=== PATIENT | female | born 1950 | race Caucasian/White ===

== ENCOUNTER 2017-07-20 08:16 | Inpatient (IN) ==
[2017-07-20] MEDS ORDERED: HYDROmorphone 2 MG/1 ML VIAL IV STA (09:35)
[2017-07-20] MEDS ORDERED: ONDANSETRON 4 MG/2 ML VIAL IV STA (09:35)
[2017-07-20] MEDS ORDERED: KETOROLAC 30 MG/1 ML VIAL IV STA (09:35)
[2017-07-20] MEDS ORDERED: cefTRIAXone 1,000 MG in SODIUM CHLORIDE 0.9% 100 ML IV STA (09:35)
[2017-07-20] MEDS ORDERED: SODIUM CHLORIDE 0.9% 500 ML IV STA (09:35)
[2017-07-20 10:13] LABS: Basophils # 0.1 10*3/uL (0.0-0.2); Basophils % 0.5 % (0.0-0.8); Eosinophils # 0.1 10*3/uL (0.0-0.87); Eosinophils % 1.2 % (0.00-10.9); Hematocrit 39.4 VOL% (35.7-47.0); Hemoglobin 13.2 GM/DL (12.0-16.0); Immature Granulocytes % 0.4 %; Immature Granulocytes Absolute 0.04 #; Lymphocytes # 0.4 10*3/uL (1.4-4.0); Lymphocytes % 3.7 % (21.3-54.2); Mean Corpuscular HGB Conc 33.5 GM/DL (32-36); Mean Corpuscular Hemoglobin 29 PG (27-34); Mean Corpuscular Volume 86.8 FL (87-102); Mean Platelet Volume 11.3 FL (9.6-12.0); Monocytes # 0.5 10*3/uL (0.11-0.8); Monocytes % 4.5 % (1.7-12.7); Neutrophils # 9.3 10*3/uL (1.4-7.4); Neutrophils % 89.7 % (38.7-73.9); Platelet Count 134 T/CUMM (130-400); Red Blood Count 4.54 MC/CUMM (3.8-5.5); White Blood Count 10.4 T/CUMM (4-12)
[2017-07-20 10:27] LABS: Alanine Aminotransferase 24 U/L (13-56); Albumin 3.5 G/DL (3.4-5.0); Alkaline Phosphatase 100 U/L (45-117); Amylase 59 U/L (25-115); Aspartate Amino Transferase 18 U/L (0-37); Blood Urea Nitrogen 34 MG/DL (7-18); Glucose 164 MG/DL (74-106); Osmolality,Calculated 290.4 MOS/KG (273-304); Sodium 140 MMOL/L (136-145); Total Protein 7.3 G/DL (6.4-8.3); Troponin I Only < 0.015 NG/ML (0.00-0.045)
[2017-07-20 10:31] LABS: Apearance,Urine CLEAR (Clear); Bacteria,Urine Moderate /HPF (Few); Bilirubin,Urine Negative (Negative); Blood, Urine Moderate mg/dL (Negative); Glucose,Urine (UA) Negative (Negative); Hyaline Casts,Urine 3 /LPF (0-3); Ketones,Urine Negative (Negative); Mucus,Urine Occasional /LPF (Occasional); Nitrite,Urine Negative (Negative); Protein,Urine Negative; RBC,Urine 9 /HPF (0-4); Squamous Epithelial Cell,Urine Occasional /HPF (0-10); Urine Color Yellow (Yellow); WBC,Urine 29 /HPF (0-6)
[2017-07-20 10:32] LABS: Lactic Acid 1.7 MMOL/L (0.4-2.0)
[2017-07-20] MEDS ORDERED: POTASSIUM CHLORIDE 20 MEQ TABLET PO STA (10:52)
[2017-07-20] MEDS: PIPERACILLIN/TAZOBACTAM 3,375 MG in SODIUM CHLORIDE 0.9% 100 ML IV SCH ×2 (12:21→20:25)
[2017-07-20] MEDS ORDERED: ENOXAPARIN 40 MG/0.4 ML SYRINGE SUBCUT SCH ×2 (15:30→21:00)
[2017-07-20] MEDS: SODIUM CHLORIDE 0.9% 1,000 ML IV SCH (16:56)
[2017-07-20] MEDS ORDERED: LEVOFLOXACIN INJ 500 MG in PREMIX 1 EACH IV ONE (17:00)
[2017-07-20] MEDS ORDERED: KETOROLAC 15 MG/1 ML VIAL IV PRN (18:57)
[2017-07-20] MEDS ORDERED: ACETAMINOPHEN 325 MG TABLET PO PRN (18:57)
[2017-07-20] MEDS ORDERED: oxyCODONE IR 5 MG TABLET PO PRN (18:57)
[2017-07-20] MEDS: RIVAROXABAN 15 MG TABLET PO SCH (20:25)
[2017-07-20] MEDS: CARVEDILOL 25 MG TABLET PO SCH (20:26)
[2017-07-21] MEDS: PIPERACILLIN/TAZOBACTAM 3,375 MG in SODIUM CHLORIDE 0.9% 100 ML IV SCH ×2 (02:42→11:51)
[2017-07-21 05:44] LABS: Basophils # 0.1 10*3/uL (0.0-0.2); Basophils % 0.6 % (0.0-0.8); Eosinophils # 0.2 10*3/uL (0.0-0.87); Eosinophils % 1.9 % (0.00-10.9); Hemoglobin 11.3 GM/DL (12.0-16.0); Immature Granulocytes % 0.4 %; Immature Granulocytes Absolute 0.04 #; Lymphocytes % 10.5 % (21.3-54.2); Mean Corpuscular HGB Conc 33.2 GM/DL (32-36); Mean Corpuscular Hemoglobin 29 PG (27-34); Mean Corpuscular Volume 87.2 FL (87-102); Monocytes # 1.2 10*3/uL (0.11-0.8); Monocytes % 12.8 % (1.7-12.7); Neutrophils # 6.9 10*3/uL (1.4-7.4); Neutrophils % 73.8 % (38.7-73.9); Platelet Count 124 T/CUMM (130-400); Red Cell Distribution Width 13.7 % (9.3-17.3); White Blood Count 9.4 T/CUMM (4-12)
[2017-07-21 06:12] LABS: Albumin 2.7 G/DL (3.4-5.0); Bilirubin,Total 0.9 MG/DL (0.2-1.0); Calcium 8.3 MG/DL (8.5-10.1); Osmolality,Calculated 294.8 MOS/KG (273-304); Potassium 4.2 MMOL/L (3.5-5.1)
[2017-07-21] MEDS: VALSARTAN/HCTZ 80-12.5 MG TABLET PO SCH (10:13)
[2017-07-21] MEDS: LEVOTHYROXINE 112 MCG TABLET PO SCH (10:13)
[2017-07-21] MEDS: DILTIAZEM CD 120 MG CAPSULE PO SCH (10:13)
[2017-07-21] MEDS: MAGNESIUM OXIDE 400 MG TABLET PO SCH (10:13)
[2017-07-21] MEDS: CARVEDILOL 25 MG TABLET PO SCH ×2 (10:13→20:34)
[2017-07-21] MEDS ORDERED: LEVOFLOXACIN INJ 250 MG in PREMIX 1 EACH IV SCH (18:00)
[2017-07-21] MEDS: RIVAROXABAN 15 MG TABLET PO SCH (20:34)
[2017-07-22] MEDS: SODIUM CHLORIDE 0.9% 1,000 ML IV SCH (01:45)
[2017-07-22 05:46] LABS: Basophils # 0.1 10*3/uL (0.0-0.2); Basophils % 0.9 % (0.0-0.8); Eosinophils # 0.1 10*3/uL (0.0-0.87); Eosinophils % 1.9 % (0.00-10.9); Immature Granulocytes % 0.5 %; Immature Granulocytes Absolute 0.03 #; Lymphocytes # 1.3 10*3/uL (1.4-4.0); Lymphocytes % 19.7 % (21.3-54.2); Mean Corpuscular HGB Conc 34.4 GM/DL (32-36); Mean Corpuscular Hemoglobin 30 PG (27-34); Mean Corpuscular Volume 87.4 FL (87-102); Mean Platelet Volume 11.6 FL (9.6-12.0); Monocytes # 0.8 10*3/uL (0.11-0.8); Monocytes % 12.5 % (1.7-12.7); Neutrophils # 4.1 10*3/uL (1.4-7.4); Neutrophils % 64.5 % (38.7-73.9); Platelet Count 128 T/CUMM (130-400); Red Blood Count 3.66 MC/CUMM (3.8-5.5); Red Cell Distribution Width 13.6 % (9.3-17.3); White Blood Count 6.3 T/CUMM (4-12)
[2017-07-22 06:07] LABS: Calcium 8.7 MG/DL (8.5-10.1); Osmolality,Calculated 285.1 MOS/KG (273-304); Potassium 3.8 MMOL/L (3.5-5.1)
[2017-07-22] MEDS: VALSARTAN/HCTZ 80-12.5 MG TABLET PO SCH (09:42)
[2017-07-22] MEDS: DILTIAZEM CD 120 MG CAPSULE PO SCH (09:43)
[2017-07-22] MEDS: LEVOTHYROXINE 112 MCG TABLET PO SCH (09:43)
[2017-07-22] MEDS: MAGNESIUM OXIDE 400 MG TABLET PO SCH (09:43)
[2017-07-22] MEDS: CARVEDILOL 25 MG TABLET PO SCH (09:43)
[2017-07-22 12:34] VITALS: BP 128/83
== END 2017-07-22 13:11 | disposition home or self-care (01) | DRG 683 ==
LOC: N.ED 08:16 → N.EDINP 10:58 → N.5E 12:00
PROVIDERS: ADMIT Internal Medicine; ATTEND Internal Medicine

== ENCOUNTER 2019-09-27 08:02 | Inpatient (IN) ==
[2019-09-27] MEDS ORDERED: HYDROmorphone 2 MG/1 ML VIAL IV STA (08:30)
[2019-09-27] MEDS ORDERED: ONDANSETRON 4 MG/2 ML VIAL IV STA (08:30)
[2019-09-27 08:59] LABS: Apearance,Urine Slightly Hazy (Clear); Bacteria,Urine Occasional /HPF (Few); Bilirubin,Urine Negative (Negative); Blood, Urine Negative (Negative); Glucose,Urine (UA) Negative (Negative); Ketones,Urine 5 mg/dL (Negative); Nitrite,Urine Negative (Negative); Protein,Urine Negative; RBC,Urine 1 /HPF (0-4); Squamous Epithelial Cell,Urine Occasional /HPF (0-10); Urine Color Straw (Yellow); Urine Specific Gravity 1.005 (1.001-1.035); Urine Urobilinogen < 2.0 EU/DL (0.2-1.0); WBC,Urine 16 /HPF (0-6)
[2019-09-27 09:27] LABS: Basophils # 0.1 10*3/uL (0.0-0.2); Basophils % 1.2 % (0.0-0.8); Eosinophils # 0.5 10*3/uL (0.0-0.87); Eosinophils % 7.6 % (0.00-10.9); Hematocrit 34.6 VOL% (35.7-47.0); Hemoglobin 10.3 GM/DL (12.0-16.0); Immature Granulocytes % 0.3 %; Immature Granulocytes Absolute 0.02 #; Lymphocytes # 0.6 10*3/uL (1.4-4.0); Lymphocytes % 8.2 % (21.3-54.2); Mean Corpuscular HGB Conc 29.8 GM/DL (32-36); Mean Corpuscular Volume 78.1 FL (87-102); Mean Platelet Volume 10.2 FL (9.6-12.0); Monocytes % 7.3 % (1.7-12.7); Neutrophils % 75.4 % (38.7-73.9); Platelet Count 180 T/CUMM (130-400); Red Blood Count 4.43 MC/CUMM (3.8-5.5); Red Cell Distribution Width 17.3 % (9.3-17.3); White Blood Count 6.9 T/CUMM (4-12)
[2019-09-27 10:05] LABS: Albumin 4.1 G/DL (3.4-5.0); Bilirubin,Total 1.4 MG/DL (0.2-1.0); Calcium 9.8 MG/DL (8.5-10.1); Osmolality,Calculated 287.3 MOS/KG (273-304); Total Protein 7.8 G/DL (6.4-8.3)
[2019-09-27] MEDS ORDERED: ONDANSETRON 4 MG/2 ML VIAL IV PRN (12:33)
[2019-09-27] MEDS ORDERED: ACETAMINOPHEN 325 MG TABLET PO PRN (12:33)
[2019-09-27] MEDS ORDERED: BISACODYL 5 MG TABLET PO PRN (12:33)
[2019-09-27] MEDS ORDERED: MORPHINE 4 MG/1 ML VIAL IV PRN ×2 (12:33)
[2019-09-27] MEDS ORDERED: ALBUTEROL/IPRATROPIUM 3 ML NEB RESP TX PRN (12:33)
[2019-09-27] MEDS ORDERED: cefOXitin 2,000 MG in SYRINGE 1 EACH IV ONE (12:36)
[2019-09-27 15:58] LABS: INR 1.4; PT Patient Result 15.2 SECS (9.8-11.9); Partial Thromboplastin Time 47.1 SECS (23.9-33.8)
[2019-09-27] MEDS ORDERED: DEXTROSE 50% 25 GM/50 ML VIAL IV PRN (16:13)
[2019-09-27] MEDS ORDERED: GLUCAGON 1 MG VIAL IM PRN (16:13)
[2019-09-27] MEDS: LACTATED RINGERS 1,000 ML IV SCH (16:24)
[2019-09-27] MEDS: INSULIN LISPRO 100 UNIT/ML SUBCUT SCH ×2 (16:31→22:22)
[2019-09-27] MEDS: carvediloL 25 MG TABLET PO SCH (22:22)
[2019-09-28 06:20] LABS: Basophils % 0.7 % (0.0-0.8); Eosinophils # 0.4 10*3/uL (0.0-0.87); Eosinophils % 7.5 % (0.00-10.9); Hematocrit 28.9 VOL% (35.7-47.0); Hemoglobin 8.5 GM/DL (12.0-16.0); Immature Granulocytes % 0.3 %; Immature Granulocytes Absolute 0.02 #; Lymphocytes # 0.6 10*3/uL (1.4-4.0); Lymphocytes % 10.3 % (21.3-54.2); Mean Corpuscular HGB Conc 29.4 GM/DL (32-36); Mean Corpuscular Volume 78.3 FL (87-102); Mean Platelet Volume 10.2 FL (9.6-12.0); Monocytes % 14.4 % (1.7-12.7); Neutrophils % 66.8 % (38.7-73.9); Platelet Count 143 T/CUMM (130-400); Red Blood Count 3.69 MC/CUMM (3.8-5.5); Red Cell Distribution Width 17.6 % (9.3-17.3); White Blood Count 5.9 T/CUMM (4-12)
[2019-09-28] MEDS ORDERED: DIAZEPAM 5 MG TABLET PO ONE (06:38)
[2019-09-28] MEDS ORDERED: GABAPENTIN 400 MG CAPSULE PO ONE (06:38)
[2019-09-28 06:40] LABS: Albumin 3.1 G/DL (3.4-5.0); Bilirubin,Total 1.6 MG/DL (0.2-1.0); Calcium 9.5 MG/DL (8.5-10.1); Osmolality,Calculated 281.3 MOS/KG (273-304); Total Protein 6.5 G/DL (6.4-8.3)
[2019-09-28 06:41] LABS: Calcium 9.4 MG/DL (8.5-10.1); Osmolality,Calculated 283.1 MOS/KG (273-304)
[2019-09-28] MEDS: LACTATED RINGERS 1,000 ML IV SCH (07:53)
[2019-09-28] MEDS: carvediloL 25 MG TABLET PO SCH ×2 (08:35→16:53)
[2019-09-28] MEDS: DILTIAZEM CD 180 MG CAPSULE PO SCH (08:36)
[2019-09-28] MEDS: hydroCHLOROthiazide 25 MG TABLET PO SCH (08:36)
[2019-09-28] MEDS: FUROSEMIDE 40 MG TABLET PO SCH (08:36)
[2019-09-28] MEDS: INSULIN LISPRO 100 UNIT/ML SUBCUT SCH ×4 (08:40→21:37)
[2019-09-28 09:03] LABS: Bilirubin,Direct 0.78 MG/DL (0.0-0.20); Bilirubin,Total 1.6 MG/DL (0.2-1.0)
[2019-09-28] MEDS: SPIRONOLACTONE 25 MG TABLET PO SCH (09:03)
[2019-09-28] MEDS: VALSARTAN 80 MG TABLET PO SCH (09:03)
[2019-09-28] MEDS: PANTOPRAZOLE 40 MG TABLET PO SCH (09:05)
[2019-09-29 05:49] LABS: Basophils # 0.1 10*3/uL (0.0-0.2); Eosinophils # 0.4 10*3/uL (0.0-0.87); Eosinophils % 6.8 % (0.00-10.9); Hematocrit 27.3 VOL% (35.7-47.0); Hemoglobin 8.1 GM/DL (12.0-16.0); Immature Granulocytes % 0.2 %; Immature Granulocytes Absolute 0.01 #; Lymphocytes # 1.1 10*3/uL (1.4-4.0); Lymphocytes % 22.3 % (21.3-54.2); Mean Corpuscular HGB Conc 29.7 GM/DL (32-36); Mean Corpuscular Volume 78.7 FL (87-102); Mean Platelet Volume 10.9 FL (9.6-12.0); Monocytes % 15.9 % (1.7-12.7); Neutrophils % 53.8 % (38.7-73.9); Platelet Count 138 T/CUMM (130-400); Red Blood Count 3.47 MC/CUMM (3.8-5.5); Red Cell Distribution Width 17.7 % (9.3-17.3); White Blood Count 5.1 T/CUMM (4-12)
[2019-09-29 06:15] LABS: Calcium 9.2 MG/DL (8.5-10.1); Osmolality,Calculated 282.1 MOS/KG (273-304)
[2019-09-29 06:21] LABS: Anisocytosis 2+; Eosinophils 3 % (0-10); Lymphocytes 21 % (20-55); Platelet Estimate Adequate; Polychromasia Slight; Segmented Neutrophils 62 % (50-85); Total Cells Counted 100
[2019-09-29 06:22] LABS: Bilirubin,Total 2.6 MG/DL (0.2-1.0); Calcium 8.8 MG/DL (8.5-10.1); Osmolality,Calculated 282.1 MOS/KG (273-304); Total Protein 5.8 G/DL (6.4-8.3)
[2019-09-29 06:22] LABS: Hypochromasia Slight; Macrocytosis Slight; Ovalocytes Few
[2019-09-29] MEDS: LACTATED RINGERS 1,000 ML IV SCH ×3 (08:57→23:39)
[2019-09-29] MEDS ORDERED: cefOXitin 2,000 MG in SYRINGE 1 EACH IV ONE (09:04)
[2019-09-29] MEDS: SPIRONOLACTONE 25 MG TABLET PO SCH (10:26)
[2019-09-29] MEDS: DILTIAZEM CD 180 MG CAPSULE PO SCH (10:26)
[2019-09-29] MEDS: INSULIN LISPRO 100 UNIT/ML SUBCUT SCH ×4 (10:26→20:23)
[2019-09-29] MEDS: carvediloL 25 MG TABLET PO SCH ×2 (10:26→16:50)
[2019-09-29] MEDS: VALSARTAN 80 MG TABLET PO SCH (10:26)
[2019-09-29] MEDS: hydroCHLOROthiazide 25 MG TABLET PO SCH (10:27)
[2019-09-29] MEDS: PANTOPRAZOLE 40 MG TABLET PO SCH (10:27)
[2019-09-29] MEDS: FUROSEMIDE 40 MG TABLET PO SCH (10:27)
[2019-09-29] MEDS ORDERED: POTASSIUM CHLORIDE 20 MEQ TABLET PO ONE (13:34)
[2019-09-29] MEDS ORDERED: MAGNESIUM SULF RIDER 2 GM in PREMIX 1 EACH IV ONE (13:34)
[2019-09-30 06:50] LABS: Calcium 9.5 MG/DL (8.5-10.1); Osmolality,Calculated 277.4 MOS/KG (273-304)
[2019-09-30 06:51] LABS: Albumin 3.5 G/DL (3.4-5.0); Bilirubin,Total 1.4 MG/DL (0.2-1.0); Calcium 9.5 MG/DL (8.5-10.1); Osmolality,Calculated 277.4 MOS/KG (273-304); Total Protein 7.4 G/DL (6.4-8.3)
[2019-09-30] MEDS ORDERED: cefOXitin 2,000 MG in SYRINGE 1 EACH IV ONE (07:00)
[2019-09-30 07:04] LABS: Basophils # 0.1 10*3/uL (0.0-0.2); Basophils % 1.4 % (0.0-0.8); Eosinophils # 0.6 10*3/uL (0.0-0.87); Eosinophils % 9.4 % (0.00-10.9); Hematocrit 32.6 VOL% (35.7-47.0); Hemoglobin 9.6 GM/DL (12.0-16.0); Immature Granulocytes % 0.3 %; Immature Granulocytes Absolute 0.02 #; Lymphocytes # 1.1 10*3/uL (1.4-4.0); Lymphocytes % 18.4 % (21.3-54.2); Mean Corpuscular HGB Conc 29.4 GM/DL (32-36); Mean Corpuscular Volume 79.1 FL (87-102); Mean Platelet Volume 10.2 FL (9.6-12.0); Neutrophils % 60.5 % (38.7-73.9); Platelet Count 181 T/CUMM (130-400); Red Blood Count 4.12 MC/CUMM (3.8-5.5); Red Cell Distribution Width 17.9 % (9.3-17.3); White Blood Count 5.9 T/CUMM (4-12)
[2019-09-30] MEDS ORDERED: TISSUE ADHESIVE 1 EACH APPLICATOR TOP ONE (08:04)
[2019-09-30] MEDS ORDERED: propofoL 200 MG/20 ML VIAL IV ONE (11:38)
[2019-09-30] MEDS ORDERED: DEXAMETHASONE 4 MG/1 ML VIAL ONE (11:39)
[2019-09-30] MEDS ORDERED: LIDOCAINE 2% 5 ML VIAL ONE (11:39)
[2019-09-30] MEDS ORDERED: SEVOFLURANE 1 UNIT/15 MINUTE INH ONE (11:39)
[2019-09-30] MEDS ORDERED: fentaNYL 100 MCG/2 ML VIAL ONE (11:39)
[2019-09-30] MEDS ORDERED: MIDAZOLAM 2 MG/2 ML VIAL ONE (11:39)
[2019-09-30] MEDS ORDERED: ESMOLOL 100 MG/10 ML VIAL IV ONE (11:39)
[2019-09-30] MEDS ORDERED: ACETAMINOPHEN 1,000 MG/100 ML VIAL IV ONE (11:40)
[2019-09-30] MEDS ORDERED: ROCURONIUM 100 MG/10 ML VIAL IV ONE (11:40)
[2019-09-30] MEDS ORDERED: PHENYLEPHRINE 1 MG/10 ML SYRINGE IV ONE (11:40)
[2019-09-30] MEDS ORDERED: NEOSTIGMINE 10 MG/10 ML VIAL ONE (11:40)
[2019-09-30] MEDS ORDERED: LACTATED RINGERS 1,000 ML IV ONE (11:40)
[2019-09-30] MEDS ORDERED: GLYCOPYRROLATE 0.4 MG/2 ML VIAL ONE (11:40)
[2019-09-30] MEDS ORDERED: SUGAMMADEX 200 MG/2 ML VIAL IV ONE (11:41)
[2019-09-30] MEDS ORDERED: ONDANSETRON 4 MG/2 ML VIAL ONE (12:02)
[2019-09-30] MEDS: HYDROmorphone 2 MG/1 ML VIAL IV PRN ×2 (12:02→12:19)
[2019-09-30] MEDS ORDERED: HYDROmorphone 2 MG/1 ML VIAL ONE (12:02)
[2019-09-30] MEDS ORDERED: ONDANSETRON 4 MG/2 ML VIAL IV PRN (12:04)
[2019-09-30] MEDS: INSULIN LISPRO 100 UNIT/ML SUBCUT SCH ×4 (13:23→20:57)
[2019-09-30] MEDS: DILTIAZEM CD 180 MG CAPSULE PO SCH (13:24)
[2019-09-30] MEDS: SPIRONOLACTONE 25 MG TABLET PO SCH (13:24)
[2019-09-30] MEDS: carvediloL 25 MG TABLET PO SCH ×2 (13:24→17:55)
[2019-09-30] MEDS: FUROSEMIDE 40 MG TABLET PO SCH (13:25)
[2019-09-30] MEDS: hydroCHLOROthiazide 25 MG TABLET PO SCH (13:25)
[2019-09-30] MEDS: VALSARTAN 80 MG TABLET PO SCH (13:25)
[2019-09-30] MEDS: PANTOPRAZOLE 40 MG TABLET PO SCH (13:25)
[2019-09-30] MEDS: LACTATED RINGERS 1,000 ML IV SCH (16:35)
[2019-10-01 05:57] LABS: Basophils % 0.3 % (0.0-0.8); Eosinophils % 0.1 % (0.00-10.9); Hematocrit 27.8 VOL% (35.7-47.0); Hemoglobin 8.3 GM/DL (12.0-16.0); Immature Granulocytes % 0.3 %; Immature Granulocytes Absolute 0.03 #; Lymphocytes # 0.6 10*3/uL (1.4-4.0); Lymphocytes % 6.1 % (21.3-54.2); Mean Corpuscular HGB Conc 29.9 GM/DL (32-36); Mean Corpuscular Volume 78.5 FL (87-102); Mean Platelet Volume 10.6 FL (9.6-12.0); Monocytes % 7.5 % (1.7-12.7); Neutrophils % 85.7 % (38.7-73.9); Platelet Count 161 T/CUMM (130-400); Red Blood Count 3.54 MC/CUMM (3.8-5.5); Red Cell Distribution Width 17.5 % (9.3-17.3); White Blood Count 9.1 T/CUMM (4-12)
[2019-10-01 06:24] LABS: Calcium 9.1 MG/DL (8.5-10.1); Osmolality,Calculated 279.3 MOS/KG (273-304)
[2019-10-01] MEDS: VALSARTAN 80 MG TABLET PO SCH (08:42)
[2019-10-01] MEDS: FUROSEMIDE 40 MG TABLET PO SCH (08:43)
[2019-10-01] MEDS: carvediloL 25 MG TABLET PO SCH (08:43)
[2019-10-01] MEDS: PANTOPRAZOLE 40 MG TABLET PO SCH (08:43)
[2019-10-01] MEDS: SPIRONOLACTONE 25 MG TABLET PO SCH (08:43)
[2019-10-01] MEDS: hydroCHLOROthiazide 25 MG TABLET PO SCH (08:43)
[2019-10-01] MEDS: DILTIAZEM CD 180 MG CAPSULE PO SCH (08:44)
[2019-10-01] MEDS: INSULIN LISPRO 100 UNIT/ML SUBCUT SCH ×2 (09:14→11:55)
[2019-10-01 09:22] LABS: Albumin 3.3 G/DL (3.4-5.0); Bilirubin,Total 1.1 MG/DL (0.2-1.0); Calcium 9.1 MG/DL (8.5-10.1); Osmolality,Calculated 278.4 MOS/KG (273-304); Total Protein 7.1 G/DL (6.4-8.3)
[2019-10-01 13:34] VITALS: BP 144/67
[2019-10-01] MEDS: LACTATED RINGERS 1,000 ML IV SCH ×2 (14:25→14:26)
== END 2019-10-01 14:20 | disposition home or self-care (01) | DRG 418 ==
LOC: N.ED 08:02 → N.EDINP 12:33 → N.3E 15:00
PROVIDERS: ADMIT Student in an Organized Health Care Education/Training Program; ATTEND Student in an Organized Health Care Education/Training Program
PROC: LAPCHOL (2019-09-30 07:20)

== ENCOUNTER 2020-03-28 18:30 | Inpatient (IN) ==
[2020-03-28] MEDS ORDERED: ETOMIDATE 20 MG/10 ML VIAL IV STA (18:50)
[2020-03-28] MEDS ORDERED: VECURONIUM 10 MG VIAL IV STA ×2 (18:50→21:45)
[2020-03-28] MEDS ORDERED: DOPamine 800 MG/250 ML PREMIX IV ONE (18:53)
[2020-03-28] MEDS ORDERED: SODIUM CHLORIDE 0.9% 1,000 ML IV STA (18:53)
[2020-03-28] MEDS: DOPamine 800 MG/250 ML PREMIX IV PRN (18:55)
[2020-03-28] MEDS ORDERED: NOREPINEPHRINE 4 MG/4 ML VIAL IV ONE (19:07)
[2020-03-28] MEDS ORDERED: VECURONIUM 10 MG VIAL IV ONE (19:07)
[2020-03-28] MEDS ORDERED: ETOMIDATE 20 MG/10 ML VIAL IV ONE (19:07)
[2020-03-28 19:11] LABS: Basophils # 0.1 10*3/uL (0.0-0.2); Basophils % 0.9 % (0.0-0.8); Eosinophils # 0.2 10*3/uL (0.0-0.87); Eosinophils % 3.9 % (0.00-10.9); Hematocrit 29.9 VOL% (35.7-47.0); Hemoglobin 8.7 GM/DL (12.0-16.0); Immature Granulocytes % 1.1 %; Immature Granulocytes Absolute 0.06 #; Lymphocytes # 1.1 10*3/uL (1.4-4.0); Lymphocytes % 18.9 % (21.3-54.2); Mean Corpuscular HGB Conc 29.1 GM/DL (32-36); Mean Corpuscular Volume 84.5 FL (87-102); Mean Platelet Volume 11.4 FL (9.6-12.0); Monocytes % 6.4 % (1.7-12.7); Neutrophils % 68.8 % (38.7-73.9); Platelet Count 131 T/CUMM (130-400); Red Blood Count 3.54 MC/CUMM (3.8-5.5); Red Cell Distribution Width 21.2 % (9.3-17.3); White Blood Count 5.7 T/CUMM (4-12)
[2020-03-28] MEDS: NOREPINEPHRINE 8 MG in SODIUM CHLORIDE 0.9% 242 ML IV PRN (19:14)
[2020-03-28 19:19] LABS: ABG Base Excess -5.3 MMOL/L (-2.5-2.5); ABG HCO3 20.1 MMOL/L (20-26); ABG PH 7.382 (7.35-7.45); ABG TCO2 17.5 MMOL/L (23-27)
[2020-03-28 19:28] LABS: Alanine Aminotransferase 16 U/L (13-56); Alkaline Phosphatase 96 U/L (45-117); Aspartate Amino Transferase 18 U/L (0-37); Blood Urea Nitrogen 54 MG/DL (7-18); Calcium 8.4 MG/DL (8.5-10.1); Carbon Dioxide 18 MMOL/L (21-32); Estimated Glom Filtration Rate 17 ML/MIN; Free T4 (Free Thyroxine) 1.41 NG/DL (0.76-1.46); Glucose 306 MG/DL (74-106); Osmolality,Calculated 292.4 MOS/KG (273-304); Sodium 133 MMOL/L (136-145); Total Protein 6.3 G/DL (6.4-8.3); Troponin I < 0.015 NG/ML (0.00-0.045)
[2020-03-28 19:30] LABS: Potassium 8.2 MMOL/L (3.5-5.1)
[2020-03-28] MEDS ORDERED: INSULIN REGULAR 10 UNIT, CALCIUM GLUCONATE 1,000 MG in DEXTROSE 10% 250 ML IV ONE ×2 (19:32→20:00)
[2020-03-28 19:34] LABS: Bacteria,Urine Occasional /HPF (Few); Bilirubin,Urine Negative (Negative); Blood, Urine Negative (Negative); Glucose,Urine (UA) Negative (Negative); Hyaline Casts,Urine 23 /LPF (0-3); Ketones,Urine Negative (Negative); Mucus,Urine Occasional /LPF (Occasional); Nitrite,Urine Negative (Negative); Protein,Urine Negative; RBC,Urine <1 /HPF (0-4); Squamous Epithelial Cell,Urine Occasional /HPF (0-10); Urine Appearance CLEAR (Clear); Urine Color Yellow (Yellow); Urine Specific Gravity 1.008 (1.001-1.035); Urine Urobilinogen < 2.0 EU/DL (0.2-1.0); WBC,Urine 1 /HPF (0-6)
[2020-03-28 19:41] LABS: Barbiturates Screen,Urine Negative (Negative); Benzodiazepines Screen,Urine Negative (Negative); Cannabinoid Screen,Urine Negative (Negative); Opiate Screen,Urine Negative (Negative); Phencyclidine Screen,Urine Negative (Negative)
[2020-03-28] MEDS ORDERED: ALBUTEROL/IPRATROPIUM 3 ML NEB RESP TX STA (20:10)
[2020-03-28] MEDS ORDERED: ALBUTEROL 2.5 MG/3 ML NEB RESP TX ONE (20:11)
[2020-03-28] MEDS ORDERED: ONDANSETRON 4 MG/2 ML VIAL IV PRN (21:32)
[2020-03-28] MEDS ORDERED: ALBUTEROL 2.5 MG/3 ML NEB RESP TX PRN (21:32)
[2020-03-28 21:43] LABS: Osmolality,Calculated 294.5 MOS/KG (273-304); Potassium 5.9 MMOL/L (3.5-5.1)
[2020-03-28] MEDS ORDERED: cefTRIAXone 1,000 MG in SODIUM CHLORIDE 0.9% 100 ML IV STA (21:52)
[2020-03-28] MEDS ORDERED: DEXTROSE 50% 25 GM/50 ML VIAL IV PRN (21:54)
[2020-03-28] MEDS ORDERED: GLUCAGON 1 MG VIAL IM PRN (21:54)
[2020-03-28] MEDS: MIDAZOLAM 100 MG in SODIUM CHLORIDE 0.9% 80 ML IV PRN (22:06)
[2020-03-28 22:09] LABS: INR 3.3; PT Patient Result 31.9 SECS (9.8-11.9); Partial Thromboplastin Time 46.9 SECS (23.9-33.8)
[2020-03-28] MEDS: SODIUM CHLORIDE 0.9% 1,000 ML IV SCH (22:25)
[2020-03-28] MEDS: PANTOPRAZOLE 40 MG VIAL IV SCH (22:30)
[2020-03-28] MEDS: INSULIN LISPRO 100 UNIT/ML SUBCUT SCH ×2 (22:32→23:58)
[2020-03-28 22:47] LABS: Hepatitis B Core IgM Quant < 0.05 Index; Hepatitis B Surface Ag Quant < 0.10 Index; Hepatitis B Surface Ag Result Non-Reactive (NonReactive); Hepatitis C Virus Ab Quant 0.05 Index; Hepatitis C Virus Ab Result Non-Reactive (NonReactive)
[2020-03-29] MEDS: NOREPINEPHRINE 8 MG in SODIUM CHLORIDE 0.9% 242 ML IV PRN (00:50)
[2020-03-29] MEDS: DOPamine 800 MG/250 ML PREMIX IV PRN ×3 (02:23→17:54)
[2020-03-29] MEDS: SODIUM CHLORIDE 0.9% 1,000 ML IV SCH ×4 (02:23→23:02)
[2020-03-29 04:50] LABS: Basophils # 0.1 10*3/uL (0.0-0.2); Basophils % 0.7 % (0.0-0.8); Eosinophils # 0.1 10*3/uL (0.0-0.87); Eosinophils % 0.9 % (0.00-10.9); Hematocrit 33.1 VOL% (35.7-47.0); Hemoglobin 10.3 GM/DL (12.0-16.0); Immature Granulocytes % 0.9 %; Immature Granulocytes Absolute 0.09 #; Lymphocytes % 10.1 % (21.3-54.2); Mean Corpuscular HGB Conc 31.1 GM/DL (32-36); Mean Corpuscular Volume 80.1 FL (87-102); Mean Platelet Volume 10.4 FL (9.6-12.0); Neutrophils % 78.4 % (38.7-73.9); Platelet Count 168 T/CUMM (130-400); Red Blood Count 4.13 MC/CUMM (3.8-5.5); Red Cell Distribution Width 20.6 % (9.3-17.3); White Blood Count 9.7 T/CUMM (4-12)
[2020-03-29 04:57] LABS: Albumin 3.5 G/DL (3.4-5.0); Bilirubin,Total 1.1 MG/DL (0.2-1.0); Calcium 8.7 MG/DL (8.5-10.1); Osmolality,Calculated 283.8 MOS/KG (273-304); Potassium 4.3 MMOL/L (3.5-5.1); Total Protein 7.4 G/DL (6.4-8.3)
[2020-03-29 04:58] LABS: Troponin I 0.108 NG/ML (0.00-0.045)
[2020-03-29] MEDS: INSULIN LISPRO 100 UNIT/ML SUBCUT SCH ×4 (05:02→20:27)
[2020-03-29 05:06] LABS: ABG Base Excess 0.5 MMOL/L (-2.5-2.5); ABG HCO3 24.9 MMOL/L (20-26); ABG PCO2 28.2 MM HG (35-48); ABG PH 7.511 (7.35-7.45); ABG TCO2 20.1 MMOL/L (23-27); Allen Test Positive; Pt O2 Delivery Device Ventilator
[2020-03-29 11:01] LABS: ABG Oxygen Saturation 98.9 % (95-100); ABG PCO2 26.6 MM HG (35-48); ABG PH 7.515 (7.35-7.45); ABG PO2 233.5 MM HG (80-95); ABG TCO2 21.8 MMOL/L (23-27); Allen Test Positive; Pt O2 Delivery Device Ventilator
[2020-03-29] MEDS ORDERED: HEPARIN 10,000 UNIT/10 ML VIAL IV SCH (18:30)
[2020-03-29] MEDS: PANTOPRAZOLE 40 MG VIAL IV SCH (21:00)
[2020-03-29] MEDS: MIDAZOLAM 100 MG in SODIUM CHLORIDE 0.9% 80 ML IV PRN (22:35)
[2020-03-30] MEDS: INSULIN LISPRO 100 UNIT/ML SUBCUT SCH ×6 (00:28→19:26)
[2020-03-30] MEDS: SODIUM CHLORIDE 0.9% 1,000 ML IV SCH ×2 (02:11→06:11)
[2020-03-30 02:57] LABS: ABG Base Excess 0.6 MMOL/L (-2.5-2.5); ABG PCO2 27.9 MM HG (35-48); ABG PH 7.518 (7.35-7.45); ABG TCO2 20.4 MMOL/L (23-27); Allen Test Positive; Pt O2 Delivery Device Ventilator
[2020-03-30 04:25] LABS: Basophils # 0.1 10*3/uL (0.0-0.2); Basophils % 0.6 % (0.0-0.8); Eosinophils # 0.3 10*3/uL (0.0-0.87); Eosinophils % 2.7 % (0.00-10.9); Hematocrit 30.1 VOL% (35.7-47.0); Hemoglobin 9.3 GM/DL (12.0-16.0); Immature Granulocytes % 0.4 %; Immature Granulocytes Absolute 0.04 #; Lymphocytes # 0.9 10*3/uL (1.4-4.0); Lymphocytes % 9.8 % (21.3-54.2); Mean Corpuscular HGB Conc 30.9 GM/DL (32-36); Mean Corpuscular Volume 81.6 FL (87-102); Mean Platelet Volume 10.4 FL (9.6-12.0); Monocytes % 8.4 % (1.7-12.7); Neutrophils % 78.1 % (38.7-73.9); Red Blood Count 3.69 MC/CUMM (3.8-5.5); Red Cell Distribution Width 21.1 % (9.3-17.3); White Blood Count 9.3 T/CUMM (4-12)
[2020-03-30 04:26] LABS: Platelet Count 127 T/CUMM (130-400)
[2020-03-30 04:37] LABS: % Iron Saturation 6.3 % (18-50); Albumin 2.9 G/DL (3.4-5.0); Bilirubin,Total 0.8 MG/DL (0.2-1.0); Calcium 8.8 MG/DL (8.5-10.1); Ferritin 32.6 ng/ml (8-252); Potassium 4.1 MMOL/L (3.5-5.1); Total Protein 6.3 G/DL (6.4-8.3)
[2020-03-30] MEDS: FERROUS SULFATE 300 MG/5 ML UDCUP PO SCH (20:36)
[2020-03-30] MEDS: PANTOPRAZOLE 40 MG VIAL IV SCH (21:16)
[2020-03-31] MEDS: INSULIN LISPRO 100 UNIT/ML SUBCUT SCH ×6 (00:14→21:42)
[2020-03-31 03:04] LABS: ABG Base Excess -1.2 MMOL/L (-2.5-2.5); ABG HCO3 23.4 MMOL/L (20-26); ABG Oxygen Saturation 99.3 % (95-100); ABG PCO2 39.5 MM HG (35-48); ABG PH 7.385 (7.35-7.45); ABG TCO2 21.6 MMOL/L (23-27)
[2020-03-31 04:21] LABS: Basophils % 0.4 % (0.0-0.8); Eosinophils # 0.2 10*3/uL (0.0-0.87); Eosinophils % 2.1 % (0.00-10.9); Hematocrit 30.7 VOL% (35.7-47.0); Hemoglobin 8.9 GM/DL (12.0-16.0); Immature Granulocytes % 0.5 %; Immature Granulocytes Absolute 0.05 #; Lymphocytes # 0.8 10*3/uL (1.4-4.0); Lymphocytes % 8.2 % (21.3-54.2); Mean Platelet Volume 9.7 FL (9.6-12.0); Monocytes % 8.7 % (1.7-12.7); Neutrophils % 80.1 % (38.7-73.9); Platelet Count 108 T/CUMM (130-400); Red Blood Count 3.57 MC/CUMM (3.8-5.5); Red Cell Distribution Width 20.8 % (9.3-17.3); White Blood Count 10.2 T/CUMM (4-12)
[2020-03-31 05:10] LABS: Calcium 8.8 MG/DL (8.5-10.1); Osmolality,Calculated 286.7 MOS/KG (273-304); Potassium 4.1 MMOL/L (3.5-5.1)
[2020-03-31 07:01] LABS: Hypochromasia 4+; Ovalocytes Few; Platelet Estimate Adequate
[2020-03-31] MEDS: FERROUS SULFATE 300 MG/5 ML UDCUP PO SCH ×2 (08:23→21:18)
[2020-03-31] MEDS: PIPERACILLIN/TAZOBACTAM 3,375 MG in SODIUM CHLORIDE 0.9% 100 ML IV SCH ×2 (10:58→21:16)
[2020-03-31] MEDS: METOPROLOL TARTRATE 25 MG TABLET PO SCH (21:17)
[2020-04-01] MEDS ORDERED: METOPROLOL TARTRATE 25 MG TABLET PO ONE (03:42)
[2020-04-01] MEDS: PIPERACILLIN/TAZOBACTAM 3,375 MG in SODIUM CHLORIDE 0.9% 100 ML IV SCH ×2 (03:51→11:07)
[2020-04-01 04:51] LABS: Basophils # 0.1 10*3/uL (0.0-0.2); Basophils % 0.7 % (0.0-0.8); Eosinophils # 0.3 10*3/uL (0.0-0.87); Eosinophils % 3.3 % (0.00-10.9); Hematocrit 30.6 VOL% (35.7-47.0); Hemoglobin 9.4 GM/DL (12.0-16.0); Immature Granulocytes % 0.3 %; Immature Granulocytes Absolute 0.03 #; Lymphocytes # 1.1 10*3/uL (1.4-4.0); Lymphocytes % 12.5 % (21.3-54.2); Mean Corpuscular HGB Conc 30.7 GM/DL (32-36); Mean Corpuscular Volume 82.7 FL (87-102); Mean Platelet Volume 9.8 FL (9.6-12.0); Monocytes % 10.1 % (1.7-12.7); Neutrophils % 73.1 % (38.7-73.9); Platelet Count 95 T/CUMM (130-400); Red Cell Distribution Width 20.1 % (9.3-17.3); White Blood Count 8.6 T/CUMM (4-12)
[2020-04-01 05:27] LABS: Calcium 8.9 MG/DL (8.5-10.1); Osmolality,Calculated 278.4 MOS/KG (273-304); Potassium 4.2 MMOL/L (3.5-5.1)
[2020-04-01 07:27] LABS: Anisocytosis 1+; Hypochromasia 2+; Microcytosis 1+; Ovalocytes Slight
[2020-04-01 07:28] LABS: Macrocytosis 1+; Platelet Estimate Decreased; Schistocytes Few
[2020-04-01] MEDS ORDERED: LEVOTHYROXINE 125 MCG TABLET PO SCH (09:00)
[2020-04-01] MEDS: FERROUS SULFATE 300 MG/5 ML UDCUP PO SCH ×3 (09:41→22:21)
[2020-04-01] MEDS: RIVAROXABAN 15 MG TABLET PO SCH (09:41)
[2020-04-01] MEDS: LEVOTHYROXINE 100 MCG TABLET PO SCH (09:41)
[2020-04-01] MEDS: METOPROLOL TARTRATE 25 MG TABLET PO SCH ×3 (09:42→22:21)
[2020-04-01] MEDS: INSULIN LISPRO 100 UNIT/ML SUBCUT SCH ×4 (09:42→22:07)
[2020-04-01] MEDS ORDERED: AMIODARONE 450 MG/9 ML VIAL IV ONE (11:41)
[2020-04-01] MEDS ORDERED: AMIODARONE 150 MG/3 ML VIAL ONE (11:41)
[2020-04-01] MEDS ORDERED: MAGNESIUM SULF RIDER 2 GM in PREMIX 1 EACH IV ONE (14:44)
[2020-04-01] MEDS: LEVOFLOXACIN INJ 750 MG in PREMIX 1 EACH IV SCH (17:27)
[2020-04-01] MEDS ORDERED: METOPROLOL TARTRATE 5 MG/5 ML VIAL IV ONE (22:26)
[2020-04-02] MEDS ORDERED: METOPROLOL TARTRATE 5 MG/5 ML VIAL IV ONE (00:38)
[2020-04-02] MEDS ORDERED: LORazepam 2 MG/1 ML VIAL IV ONE (00:39)
[2020-04-02 06:00] LABS: Basophils # 0.1 10*3/uL (0.0-0.2); Basophils % 0.7 % (0.0-0.8); Eosinophils # 0.2 10*3/uL (0.0-0.87); Eosinophils % 1.9 % (0.00-10.9); Hematocrit 33.5 VOL% (35.7-47.0); Hemoglobin 10.5 GM/DL (12.0-16.0); Immature Granulocytes % 0.5 %; Immature Granulocytes Absolute 0.05 #; Lymphocytes # 1.3 10*3/uL (1.4-4.0); Lymphocytes % 12.4 % (21.3-54.2); Mean Corpuscular HGB Conc 31.3 GM/DL (32-36); Mean Corpuscular Volume 81.5 FL (87-102); Mean Platelet Volume 10.9 FL (9.6-12.0); Monocytes % 11.5 % (1.7-12.7); Platelet Count 122 T/CUMM (130-400); Red Blood Count 4.11 MC/CUMM (3.8-5.5); Red Cell Distribution Width 19.7 % (9.3-17.3); White Blood Count 10.2 T/CUMM (4-12)
[2020-04-02 06:19] LABS: Osmolality,Calculated 274.7 MOS/KG (273-304)
[2020-04-02] MEDS: LEVOTHYROXINE 100 MCG TABLET PO SCH (06:24)
[2020-04-02 07:03] LABS: Anisocytosis 1+; Platelet Estimate Adequate
[2020-04-02 07:04] LABS: Hypochromasia Slight
[2020-04-02] MEDS: INSULIN LISPRO 100 UNIT/ML SUBCUT SCH ×4 (08:01→20:45)
[2020-04-02] MEDS: METOPROLOL TARTRATE 25 MG TABLET PO SCH ×2 (10:09→20:44)
[2020-04-02] MEDS: FERROUS SULFATE 300 MG/5 ML UDCUP PO SCH ×2 (10:09→20:44)
[2020-04-02] MEDS: RIVAROXABAN 15 MG TABLET PO SCH (10:09)
[2020-04-02 17:35] LABS: Bacteria,Urine Occasional /HPF (Few); Bilirubin,Urine Negative (Negative); Blood, Urine Negative (Negative); Glucose,Urine (UA) Negative (Negative); Ketones,Urine Negative (Negative); Mucus,Urine Occasional /LPF (Occasional); Nitrite,Urine Negative (Negative); Protein,Urine Negative; RBC,Urine 3 /HPF (0-4); Squamous Epithelial Cell,Urine Occasional /HPF (0-10); Urine Appearance CLEAR (Clear); Urine Color Yellow (Yellow); Urine Specific Gravity 1.006 (1.001-1.035); Urine Urobilinogen < 2.0 EU/DL (0.2-1.0); WBC,Urine <1 /HPF (0-6)
[2020-04-03] MEDS: LEVOTHYROXINE 100 MCG TABLET PO SCH (06:11)
[2020-04-03 07:22] LABS: Potassium 3.9 MMOL/L (3.5-5.1)
[2020-04-03 08:05] LABS: Basophils # 0.1 10*3/uL (0.0-0.2); Basophils % 0.7 % (0.0-0.8); Eosinophils # 0.3 10*3/uL (0.0-0.87); Eosinophils % 3.1 % (0.00-10.9); Hematocrit 32.7 VOL% (35.7-47.0); Hemoglobin 10.3 GM/DL (12.0-16.0); Immature Granulocytes % 0.8 %; Immature Granulocytes Absolute 0.07 #; Lymphocytes # 1.4 10*3/uL (1.4-4.0); Lymphocytes % 15.9 % (21.3-54.2); Mean Corpuscular HGB Conc 31.5 GM/DL (32-36); Mean Corpuscular Volume 82.4 FL (87-102); Mean Platelet Volume 10.6 FL (9.6-12.0); Monocytes % 11.4 % (1.7-12.7); Neutrophils % 68.1 % (38.7-73.9); Platelet Count 156 T/CUMM (130-400); Red Blood Count 3.97 MC/CUMM (3.8-5.5); Red Cell Distribution Width 19.9 % (9.3-17.3); White Blood Count 8.9 T/CUMM (4-12)
[2020-04-03] MEDS: INSULIN LISPRO 100 UNIT/ML SUBCUT SCH ×4 (08:10→21:13)
[2020-04-03] MEDS: METOPROLOL TARTRATE 25 MG TABLET PO SCH ×3 (09:21→20:32)
[2020-04-03] MEDS: RIVAROXABAN 15 MG TABLET PO SCH (09:21)
[2020-04-03] MEDS: FERROUS SULFATE 300 MG/5 ML UDCUP PO SCH ×2 (09:21→20:32)
[2020-04-03] MEDS ORDERED: MAGNESIUM SULF RIDER 2 GM in PREMIX 1 EACH IV ONE (13:34)
[2020-04-03] MEDS: LEVOFLOXACIN INJ 750 MG in PREMIX 1 EACH IV SCH (16:48)
[2020-04-04] MEDS: LEVOTHYROXINE 100 MCG TABLET PO SCH (06:10)
[2020-04-04 06:15] LABS: Basophils # 0.1 10*3/uL (0.0-0.2); Basophils % 0.8 % (0.0-0.8); Eosinophils # 0.4 10*3/uL (0.0-0.87); Eosinophils % 3.6 % (0.00-10.9); Hematocrit 31.5 VOL% (35.7-47.0); Hemoglobin 9.8 GM/DL (12.0-16.0); Immature Granulocytes % 1.1 %; Immature Granulocytes Absolute 0.11 #; Lymphocytes # 1.5 10*3/uL (1.4-4.0); Lymphocytes % 15.3 % (21.3-54.2); Mean Corpuscular HGB Conc 31.1 GM/DL (32-36); Mean Corpuscular Volume 82.2 FL (87-102); Mean Platelet Volume 9.8 FL (9.6-12.0); Monocytes % 9.8 % (1.7-12.7); Neutrophils % 69.4 % (38.7-73.9); Platelet Count 175 T/CUMM (130-400); Red Blood Count 3.83 MC/CUMM (3.8-5.5); Red Cell Distribution Width 19.3 % (9.3-17.3); White Blood Count 9.7 T/CUMM (4-12)
[2020-04-04 06:34] LABS: Calcium 8.7 MG/DL (8.5-10.1); Osmolality,Calculated 275.8 MOS/KG (273-304); Potassium 4.1 MMOL/L (3.5-5.1)
[2020-04-04] MEDS: METOPROLOL TARTRATE 25 MG TABLET PO SCH ×4 (06:59→21:06)
[2020-04-04] MEDS: INSULIN LISPRO 100 UNIT/ML SUBCUT SCH ×4 (08:00→21:06)
[2020-04-04] MEDS: RIVAROXABAN 15 MG TABLET PO SCH (09:08)
[2020-04-04] MEDS: FERROUS SULFATE 300 MG/5 ML UDCUP PO SCH ×2 (09:08→21:04)
[2020-04-04] MEDS ORDERED: DEXTROSE 50% 25 GM/50 ML VIAL IV PRN (13:14)
[2020-04-04] MEDS ORDERED: ACETAMINOPHEN 325 MG TABLET PO PRN (21:18)
[2020-04-05] MEDS: LEVOTHYROXINE 100 MCG TABLET PO SCH (06:04)
[2020-04-05] MEDS ORDERED: PNEUMOCOCCAL VACCINE (23 VALENT) 0.5 ML VIAL IM ONE (09:00)
[2020-04-05] MEDS: FERROUS SULFATE 300 MG/5 ML UDCUP PO SCH ×2 (09:05→20:38)
[2020-04-05] MEDS: METOPROLOL TARTRATE 25 MG TABLET PO SCH ×2 (09:05→20:39)
[2020-04-05] MEDS: RIVAROXABAN 15 MG TABLET PO SCH (09:05)
[2020-04-05] MEDS: INSULIN LISPRO 100 UNIT/ML SUBCUT SCH ×4 (09:10→20:41)
[2020-04-05] MEDS: predniSONE 20 MG TABLET PO SCH (14:51)
[2020-04-05] MEDS: allopurinoL 100 MG TABLET PO SCH (14:51)
[2020-04-05] MEDS: PANTOPRAZOLE 40 MG TABLET PO SCH (14:51)
[2020-04-06 05:54] LABS: Basophils % 0.1 % (0.0-0.8); Hematocrit 34.3 VOL% (35.7-47.0); Hemoglobin 10.8 GM/DL (12.0-16.0); Immature Granulocytes % 3.1 %; Immature Granulocytes Absolute 0.31 #; Lymphocytes # 0.7 10*3/uL (1.4-4.0); Lymphocytes % 7.2 % (21.3-54.2); Mean Corpuscular HGB Conc 31.5 GM/DL (32-36); Mean Corpuscular Volume 82.5 FL (87-102); Mean Platelet Volume 9.7 FL (9.6-12.0); Monocytes % 1.6 % (1.7-12.7); Platelet Count 253 T/CUMM (130-400); Red Blood Count 4.16 MC/CUMM (3.8-5.5); Red Cell Distribution Width 19.3 % (9.3-17.3); White Blood Count 9.9 T/CUMM (4-12)
[2020-04-06] MEDS: LEVOTHYROXINE 100 MCG TABLET PO SCH (06:25)
[2020-04-06 06:29] LABS: Calcium 9.4 MG/DL (8.5-10.1); Osmolality,Calculated 277.2 MOS/KG (273-304); Potassium 4.2 MMOL/L (3.5-5.1)
[2020-04-06] MEDS: RIVAROXABAN 15 MG TABLET PO SCH (09:34)
[2020-04-06] MEDS: PANTOPRAZOLE 40 MG TABLET PO SCH (09:34)
[2020-04-06] MEDS: allopurinoL 100 MG TABLET PO SCH (09:34)
[2020-04-06] MEDS: predniSONE 20 MG TABLET PO SCH (09:34)
[2020-04-06] MEDS: FERROUS SULFATE 300 MG/5 ML UDCUP PO SCH (09:34)
[2020-04-06] MEDS: METOPROLOL TARTRATE 25 MG TABLET PO SCH (09:35)
[2020-04-06] MEDS: INSULIN LISPRO 100 UNIT/ML SUBCUT SCH ×2 (10:27→13:27)
[2020-04-06 12:32] VITALS: BP 119/80
[2020-04-06] MEDS ORDERED: predniSONE 20 MG TABLET PO SCH (14:09)
== END 2020-04-06 15:00 | DRG 208 ==
LOC: EDBD → EDUNIT# → N.ED 18:30 → N.EDINP 20:27 → SUATTDRO 20:27 → N.CC 23:01 → N.TELES 03-31 17:55
PROVIDERS: ADMIT Internal Medicine; ATTEND Internal Medicine